=== PATIENT | male | born 1975 | race Caucasian/White ===

== ENCOUNTER 2018-03-07 12:31 | Emergency (ER) | payer OTHER ==
[~2018-03-07] VITALS: Ht 182.9 cm; Wt 151.5 kg
--- NOTE | ~2018-03-07 | EKG ---
[address] [address] ELECTROCARDIOGRAM REPORT Name: JOSE M ROMANNE Room #: DEP Harvey#: [id number] Admission: 03/07/18 Attend Phys: Discharge: 03/07/18 Date of : 77 Report #: [id number] THIS REPORT FOR: //name// [facility] ED Test Date: 2018-03-07 Test Time: 12:36:36 Pat Name: JOSE M ROMAN Department: Room: Gender: M Tree Trimmer: MZOOK : 1975 Requested By: Elizabeth Boateng Order Number: [id number] MD: Kee Mehta Measurements Intervals [place] Rate: 95 P: 0 AR: 151 QRS: 30 QRSD: 90 T: 38 QT: 364 QTc: 458 Interpretive Statements Sinus rhythm Borderline T wave abnormalities Compared to ECG 01/07/2007 14:20:54 T-wave abnormality now present Electronically Signed On 03-07-2018 14:59:19 CDT by Kee Mehta [email or web address] <ELECTRONICALLY SIGNED> By: Kee Mehta MD, [facility] 03/07/18 1459 D: 07/1235 1236 Kee Mehta MD, FACC /EPI
[2018-03-07 13:02] LABS: ABSOLUTE NEUTROPHILS 5.5 thou/uL (1.4-8.2); BASOPHILS 0.5 % (0.0-2.0); EOSINOPHILS 2.3 % (0.0-3.0); HEMOGLOBIN 14.8 gm/dL (14.0-18.0); LYMPHOCYTES 19.5 % (24.0-44.0); MCH 31.4 pg (26.0-34.0); MCHC 34.4 g/dL (28.0-37.0); MCV 91.1 fL (80.0-100.0); MONOCYTES 6.2 % (1.0-8.0); PLATELET COUNT 227 thou/uL (150-400); POLYS 71.5 % (36.0-66.0); RBC 4.72 mil/uL (4.50-6.00); RDW 13.4 % (10.5-14.5); WBC 7.7 thou/uL (4.0-11.0)
[2018-03-07 13:15] LABS: ANION GAP 11 mmol/L (7-16); BUN 13 mg/dL (7-18); CALCIUM 9.2 mg/dL (8.5-10.1); CHLORIDE 102 mmol/L (98-107); CO2 25 mmol/L (21-32); CREATININE 1.2 mg/dL (0.7-1.3); GLUCOSE 148 mg/dL (74-106); POTASSIUM 3.8 mmol/L (3.5-5.1); SODIUM 138 mmol/L (136-145)
[2018-03-07 13:24] LABS: TROPONIN-I <0.06 ng/mL (<0.06)
[2018-03-07 14:23] VITALS: BP 143/79
== END 2018-03-07 14:24 | disposition home or self-care (01) ==
LOC: ER 12:31
PROVIDERS: Physician Assistant
DX: R07.9 Chest pain, unspecified (principal); R00.2 Palpitations; Z87.891 Personal history of nicotine dependence; Z98.52 Vasectomy status